=== PATIENT | female | born 1940 | race Caucasian/White ===

== ENCOUNTER → 2017-01-07 | Outpatient (CLI) | payer MEDICARE, BC ==
[~2017-01-07] MED LIST: CENTURY ULTIMA1 EAC3 PO; COREG3.125 M1 PO; LIPITOR40 MG PO; SYNTHROID175 MCG PO; TRIAMTERENE-HCT1 TA8 PO
--- NOTE | ~2017-01-07 | TH ---
Unit #: [id number] #: [id number] Patient: MARGARITA FLOYD [id number] [address] [address] [id number] O MR#: [id number] NAME: MARGARITA FLOYD : 1940 SEX: F STUDY DATE/TIME: UNIT: [facility] ROOM: STUDY DESCRIPTION: Nuclear Study Attending Physician: [place] Claire M.D. Referring Physician: [place] Claire M.D. Primary Care Physician: Silvia Jamil M.D. CARDIOLOGY REPORT EXAM Lexiscan Cardiolite Stress Test - Nuclear Portion PROCEDURE Using technetium 99m labeled Cardiolite, rest and stress SPECT images were obtained. Multiple SPECT images were obtained in various views including horizontal and vertical long axis and short axis views of the left ventricle. Images were obtained by gated SPECT method. Patient was administered 11.29 mCi of Cardiolite at rest. Patient was administered 35.5 mCi of Cardiolite after Lexiscan infusion was completed. On the stress images, there is normal perfusion noted. The rest images show normal perfusion. Comparing rest and stress images, there is no stress-induced ischemia noted. The left ventricular ejection fraction is calculated to be 92%. There is no focal wall motion abnormality seen. CONCLUSION 1. No stress-induced ischemia noted. 2. The left ventricular ejection fraction is calculated to be 92%. 3. There is no focal wall motion abnormality seen. 4. The left ventricular size is very small. 5. Normal Lexiscan Cardiolite stress test. Dictated by... Isaias Posadas TD: 01/07/2017 12:51 JOB #: [id number] Unit #: [id number] #: [id number] Patient: MARGARITA FLOYD CARDIOLOGY REPORT Page 1 of 1 X Bharti Egan MD <ELECTRONICALLY SIGNED> 01/21/17 1524 CARDIOLOGY REPORT
--- NOTE | ~2017-01-07 | ST ---
Unit #: [id number] #: [id number] Patient: MARGARITA FLOYD [id number] [facility] [address] [facility]. [place], [place] [address] [id number] O MR#: [id number] NAME: MARGARITA FLOYD : 1940 SEX: F STUDY DATE/TIME: 01/07/2017 UNIT: [facility] ROOM: STUDY DESCRIPTION: Attending Physician: [place] Claire M.D. Referring Physician: [place] Claire M.D. Primary Care Physician: Silvia Jamil M.D. CARDIOLOGY REPORT EXAM Lexiscan Cardiolite stress test. FINDINGS Baseline EKG: Normal sinus rhythm with ventricular rate 66 beats per minute, poor R-wave progression, slightly prolonged QT. PROCEDURE Lexiscan is a 4-minute test with Lexiscan being injected within the first minute followed by Cardiolite. EKG during the test was equivocal to baseline. No acute ischemic changes. Patient had no complaints of chest pain, palpitations, or dizziness. Had increased shortness of breath and fatigueness which resolved in recovery phase. Next, maximum heart rate response was 93 beats per minute with a maximum blood pressure response of 155/78 mmHg. Next, Cardiolite was injected after Lexiscan within the first minute of the test. Radionuclide tests pending. Please correlate with nuclear images. Dictated by... Lucila Ochoa A.P.R.N. for Isaias Posadas/matilda TD: 01/07/2017 11:02 JOB #: [id number] CARDIOLOGY REPORT Page 1 of 1 X Lucila Ochoa APRN CARDIOLOGY REPORT
== END | disposition home or self-care (01) ==
LOC: CNUC 08:15
DX: R06.00 Dyspnea, unspecified (principal)
CPT/HCPCS: 78452; 93017; A9500; J2785